=== PATIENT | male | born 1955 | race Caucasian/White ===

== ENCOUNTER → 2023-11-23 11:00 | Outpatient (REF) | payer MEDICARE, SELFPAY ==
[2023-11-23 12:23] LABS: ALT (SGPT) 22 U/L (0-50); AST (SGOT) 32 U/L (17-59); Albumin 4.4 g/dl (3.5-5.0); Alkaline Phosphatase 115 U/L (38-126); Blood Urea Nitrogen 25 mg/dl (9-20); Calcium 10.2 mg/dl (8.4-10.2); Carbon Dioxide 26 mmol/L (22-30); Chloride 100 mmol/L (98-107); Glucose 120 mg/dl (70-99); HDL Cholesterol 62 mg/dl; LDL Cholesterol, Calculated 108 mg/dl; Potassium 4.4 mmol/L (3.5-5.1); Sodium 134 mmol/L (135-145); Total Bilirubin 0.5 mg/dl (0.2-1.3); Total Cholesterol 195 mg/dl (50-199); Triglyceride 125 mg/dl (10-149); Very Low Density Lipoprotein 25 mg/dl (0-30); eGFR > 60.00
[2023-11-23 12:42] LABS: Erythrocyte Sed Rate 5 mm/hour (0-20)
[2023-11-23 12:53] LABS: TSH 1.12 uIU/ml (0.47-4.68)
== END ==
LOC: RAD 11:00
PROVIDERS: ATTENDING PHYSICIAN Internal Medicine
DX: R20.0 Anesthesia of skin (principal); Z00.00 Encounter for general adult medical examination without abnormal findings; R53.83 Other fatigue; E78.5 Hyperlipidemia, unspecified; M54.12 Radiculopathy, cervical region; Z12.5 Encounter for screening for malignant neoplasm of prostate
CPT/HCPCS: 36415; 72040; 80053; 80061; 84443; 85652; G0103

== ENCOUNTER → 2023-12-27 13:20 | Outpatient (REF) | payer MEDICARE, SELFPAY | LOC: MRI 3T 13:20 | PROVIDERS: ATTENDING PHYSICIAN Internal Medicine | DX: M54.12 Radiculopathy, cervical region (principal) | CPT/HCPCS: 72141 ==

== ENCOUNTER → 2025-02-20 10:42 | Outpatient (REF) | payer MEDICARE, SELFPAY | LOC: RAD 10:42 | PROVIDERS: ATTENDING PHYSICIAN Internal Medicine | DX: M16.11 Unilateral primary osteoarthritis, right hip (principal) | CPT/HCPCS: 73502 ==